=== PATIENT | female | born 1975 | race Caucasian/White ===

== ENCOUNTER 2022-04-14 15:38 | Outpatient (CLI) | payer OTHER, SELFPAY ==
--- NOTE | ~2022-04-14 | MR_ITS ---
EXAMINATION: MR knee RT wo con DATE: 04/14/2022 16:18 INDICATION: Right knee pain. TECHNIQUE: Magnetic resonance imaging (MRI) of the right knee was performed without intravenous contr ast. Sequences included axial PD-weighted FS FSE, coronal PD-weighted FSE and PD-weighted FS FSE, sag ittal PD-weighted FSE, and sagittal T2-weighted FS FSE. COMPARISON: None. FINDINGS: Medial compartment: Medial meniscus is normal. Medial compartment cartilage is normal. Lateral compartment: Lateral meniscus is normal. Lateral compartment cartilage is normal. Patellofemoral compartment: There is shallow partial-thickness cartilage loss of patellar medial and lateral facets. There is foc al deep cartilage fissuring of patellar lateral facet. Trochlear cartilage is normal. Ligaments and tendons: There is a complete tear of anterior cruciate ligament. Posterior cruciate ligament is normal. Medial collateral ligament and lateral collateral ligament complex are intact. The patellar tendon is mine l. Fluid: There is a small knee joint effusion. There is mild superficial infrapatellar bursitis. Osseous/other: There is edema-like marrow signal intensity in posterior aspect of medial and lateral tibial condyles and medial aspect of medial femoral condyle, consistent with contusions. IMPRESSION: 1. Complete tear of anterior cruciate ligament. 2. Moderate patellar chondrosis. 3. Small knee joint effusion. Reviewed, dictated and finalized at location A. [facility]
== END 2022-04-14 15:39 | disposition home or self-care (01) ==
LOC: ANHIMG 15:42
PROVIDERS: Visit Provider Orthopaedic Surgery
DX: M25.461 Effusion, right knee (principal); S83.511A Sprain of anterior cruciate ligament of right knee, initial encounter; X58.XXXA Exposure to other specified factors, initial encounter
CPT/HCPCS: 73721